=== PATIENT | male | born 1970 | race Caucasian/White ===

== ENCOUNTER 2018-10-31 02:21 | Inpatient (IN) | payer MEDICARE, OTHER, MEDICAID ==
[2018-10-31 04:14] LABS: ADD MAN DIFF? NO
[2018-10-31] MEDS: PIPER-TAZO 3.375 GM IV (PMX) 100 ML IVPB (04:15)
[2018-10-31 04:17] LABS: ABNORMAL IP MESSAGE 1; BASOPHIL # 0.1 10^3/ul (0.0-0.1); EOSINOPHILS # 0.1 10^3/ul (0.0-0.5); EOSINOPHILS % 0.8 % (0.0-7.0); HEMATOCRIT 40.9 % (42.0-52.0); HEMOGLOBIN 13.8 g/dl (14.0-18.0); LYMPHOCYTES # 1.2 10^3/ul (0.8-2.9); MEAN CORPUSCULAR HEMOGLOBIN 30.5 pg (29.0-33.0); MEAN CORPUSCULAR HGB CONC 33.7 g/dl (32.0-37.0); MEAN CORPUSCULAR VOLUME 90.3 fl (82.0-101.0); MEAN PLATELET VOLUME 12.5 fl (7.4-10.4); MONOCYTE # 1.2 10^3/ul (0.3-0.9); MONOCYTES % 19.5 % (0.0-11.0); NEUTROPHIL # 3.3 10^3/ul (1.6-7.5); PLATELET COUNT 73 10^3/UL (140-415); POSITIVE DIFF @See below; RED BLOOD COUNT 4.53 10^6/ul (4.70-6.10); RED CELL DISTRIBUTION WIDTH 15.2 % (11.5-14.5)
[2018-10-31 04:17] LABS: WHITE BLOOD COUNT 5.9 10^3/ul (4.8-10.8)
[2018-10-31 04:38] LABS: INR 1.19; PARTIAL THROMBOPLASTIN TIME 32.8 Sec (23.0-35.0); PROTIME 15.2 Sec (11.9-14.9); PT RATIO 1.2
[2018-10-31 04:56] LABS: ALANINE AMINOTRANSFERASE 43 IU/L (13-69); ALBUMIN 3.2 g/dl (3.3-4.9); ALBUMIN/GLOBULIN RATIO 0.82; ALKALINE PHOSPHATASE 97 IU/L (42-121); ANION GAP 7 (5-13); ASPARTATE AMINO TRANSFERASE 72 IU/L (15-46); BILIRUBIN,INDIRECT 1.2 mg/dl (0-1.1); BILIRUBIN,TOTAL 1.2 mg/dl (0.2-1.3); BLOOD UREA NITROGEN 7 mg/dl (7-20); CALCIUM 8.1 mg/dl (8.4-10.2); CARBON DIOXIDE 29 mmol/L (21-31); CHLORIDE 104 mmol/L (97-110); CREATININE 0.61 mg/dl (0.61-1.24); Estimated GFR > 60 mL/min (>60); GLUCOSE 111 mg/dl (70-220); POTASSIUM 3.8 mmol/L (3.5-5.1); SODIUM 140 mmol/L (135-144); TOTAL PROTEIN 7.1 g/dl (6.1-8.1)
[2018-10-31] MEDS ORDERED: ACETAMINOPHEN 325 MG TAB PO (05:00)
[2018-10-31] MEDS ORDERED: DOCUSATE SODIUM 100 MG CAP PO (05:00)
[2018-10-31] MEDS ORDERED: VANCOMYCIN IV PER PHARMACY XX (05:00)
[2018-10-31] MEDS ORDERED: NACL 0.9% 3 ML SYG IV (05:00)
[2018-10-31 05:08] LABS: TROPONIN-I < 0.012 ng/ml (0.000-0.120)
[2018-10-31] MEDS: VANCOMYCIN 1 GM (PMX) 250 ML IVPB (05:18)
[2018-10-31] MEDS: HYDROCODONE/APAP (5/325) TAB PO ×4 (05:23→23:37)
[2018-10-31] MEDS ORDERED: LORAZEPAM 2 MG INJ IV (07:00)
[2018-10-31 07:03] LABS: LACTIC ACID 2.2 mmol/L (0.5-2.0)
[2018-10-31 09:56] LABS: LACTIC ACID 1.9 mmol/L (0.5-2.0)
[2018-10-31] MEDS: MULTIVITAMINS THERAPEUTIC TAB PO (10:47)
[2018-10-31] MEDS: THIAMINE 100 MG TAB PO (10:47)
[2018-10-31] MEDS: FOLIC ACID 1 MG TAB PO (10:47)
[2018-10-31] MEDS: VANCOMYCIN HCL 1.5 GM in SOD CHLORIDE 0.9% 250 ML IVPB ×2 (12:50→23:33)
[2018-11-01] MEDS: HYDROCODONE/APAP (5/325) TAB PO (06:48)
[2018-11-01 07:02] LABS: ADD MAN DIFF? NO
[2018-11-01 07:06] LABS: ABNORMAL IP MESSAGE 1; BASOPHILS % 0.8 % (0.0-2.0); EOSINOPHILS # 0.1 10^3/ul (0.0-0.5); HEMATOCRIT 42.5 % (42.0-52.0); HEMOGLOBIN 14.3 g/dl (14.0-18.0); LYMPHOCYTES # 1.2 10^3/ul (0.8-2.9); LYMPHOCYTES % 24.2 % (15.0-51.0); MEAN CORPUSCULAR HEMOGLOBIN 30.2 pg (29.0-33.0); MEAN CORPUSCULAR HGB CONC 33.6 g/dl (32.0-37.0); MEAN CORPUSCULAR VOLUME 89.9 fl (82.0-101.0); MEAN PLATELET VOLUME 11.8 fl (7.4-10.4); MONOCYTE # 0.9 10^3/ul (0.3-0.9); MONOCYTES % 16.9 % (0.0-11.0); NEUTROPHIL # 2.7 10^3/ul (1.6-7.5); NEUTROPHILS % 53.7 % (39.0-77.0); PLATELET COUNT 65 10^3/UL (140-415); POSITIVE DIFF @See below; RED BLOOD COUNT 4.73 10^6/ul (4.70-6.10); RED CELL DISTRIBUTION WIDTH 14.6 % (11.5-14.5)
[2018-11-01 07:32] LABS: ANION GAP 4 (5-13); BLOOD UREA NITROGEN 6 mg/dl (7-20); CALCIUM 8.2 mg/dl (8.4-10.2); CARBON DIOXIDE 26 mmol/L (21-31); CHLORIDE 104 mmol/L (97-110); CHOL/HDL RATIO 2.6 RATIO; CHOLESTEROL 121 mg/dl (100-200); CREATININE 0.49 mg/dl (0.61-1.24); Estimated GFR > 60 mL/min (>60); GLUCOSE 86 mg/dl (70-220); HDL CHOLESTEROL 45 mg/dl (27-67); LDL CHOLESTEROL,CALCULATED 62 mg/dl; MAGNESIUM 1.8 mg/dl (1.7-2.5); POTASSIUM 3.8 mmol/L (3.5-5.1); SODIUM 134 mmol/L (135-144); TRIGLYCERIDES 70 mg/dl (0-149)
[2018-11-01] MEDS: FOLIC ACID 1 MG TAB PO (08:13)
[2018-11-01] MEDS: MULTIVITAMINS THERAPEUTIC TAB PO (08:13)
[2018-11-01] MEDS: THIAMINE 100 MG TAB PO (08:13)
[2018-11-01] MEDS: VANCOMYCIN HCL 1.5 GM in SOD CHLORIDE 0.9% 250 ML IVPB ×3 (11:30→21:18)
[2018-11-01] MEDS: BISACODYL (EC) 5 MG TAB PO (14:09)
[2018-11-01] MEDS: HYDROmorphONE 2 MG TAB PO ×2 (14:09→20:22)
[2018-11-01] MEDS: LIDOCAINE 1% (MPF) 5 ML VIAL SC (18:00)
[2018-11-02] MEDS: DIPHENHYDRAMINE 50 MG CAP PO ×2 (00:52→10:05)
[2018-11-02] MEDS: MULTIVITAMINS THERAPEUTIC TAB PO (08:21)
[2018-11-02] MEDS: THIAMINE 100 MG TAB PO (08:21)
[2018-11-02] MEDS: VANCOMYCIN HCL 1.5 GM in SOD CHLORIDE 0.9% 250 ML IVPB ×2 (08:21→21:23)
[2018-11-02] MEDS: FOLIC ACID 1 MG TAB PO (08:21)
[2018-11-02] MEDS: HYDROmorphONE 2 MG TAB PO ×3 (08:31→22:17)
[2018-11-03] MEDS: HYDROmorphONE 2 MG TAB PO (07:27)
[2018-11-03] MEDS: MULTIVITAMINS THERAPEUTIC TAB PO (08:43)
[2018-11-03] MEDS: THIAMINE 100 MG TAB PO (08:43)
[2018-11-03] MEDS: VANCOMYCIN HCL 1.5 GM in SOD CHLORIDE 0.9% 250 ML IVPB (08:43)
[2018-11-03] MEDS: FOLIC ACID 1 MG TAB PO (08:43)
[2018-11-03 10:02] LABS: VANCOMYCIN,TROUGH 5.4 ug/ml (10.0-20.0)
[2018-11-03] MEDS ORDERED: HYDROCODONE/APAP (5/325) TAB PO (13:30)
[2018-11-03] MEDS ORDERED: traMADol 50 MG TAB PO (15:30)
[2018-11-03] MEDS: VANCOMYCIN HCL 1.25 GM in SOD CHLORIDE 0.9% 250 ML IVPB (17:15)
[2018-11-04] MEDS: VANCOMYCIN HCL 1.25 GM in SOD CHLORIDE 0.9% 250 ML IVPB ×3 (01:01→18:53)
[2018-11-04] MEDS: HYDROmorphONE 2 MG TAB PO ×2 (01:01→20:08)
[2018-11-04 05:52] LABS: ADD MAN DIFF? NO
[2018-11-04 05:58] LABS: WHITE BLOOD COUNT 5.2 10^3/ul (4.8-10.8)
[2018-11-04 05:58] LABS: ABNORMAL IP MESSAGE 1; HEMATOCRIT 39.6 % (42.0-52.0); MEAN CORPUSCULAR HEMOGLOBIN 30.4 pg (29.0-33.0); MEAN CORPUSCULAR HGB CONC 32.8 g/dl (32.0-37.0); MEAN CORPUSCULAR VOLUME 92.7 fl (82.0-101.0); MEAN PLATELET VOLUME 12.2 fl (7.4-10.4); PLATELET COUNT 82 10^3/UL (140-415); POSITIVE DIFF @See below; RED BLOOD COUNT 4.27 10^6/ul (4.70-6.10)
[2018-11-04 06:36] LABS: ANION GAP 9 (5-13); BLOOD UREA NITROGEN 8 mg/dl (7-20); CALCIUM 7.7 mg/dl (8.4-10.2); CARBON DIOXIDE 26 mmol/L (21-31); CHLORIDE 104 mmol/L (97-110); CREATININE 0.45 mg/dl (0.61-1.24); Estimated GFR > 60 mL/min (>60); GLUCOSE 204 mg/dl (70-220); SODIUM 139 mmol/L (135-144)
[2018-11-04 07:51] LABS: BAND NEUTROPHILS #M 0.1 10^3/ul (0.0-0.6); BAND NEUTROPHILS % (M) 2 % (0-4); BASOPHILS % (M) 1 % (0-2); EOSINOPHILS % (M) 1 % (0-7); GIANT THROMBO% (M) 3 % (0-0); LYMPHOCYTES % (M) 20 % (15-51); METAMYELOCYTES %M 1 % (0-0); MONOCYTE #M 0.2 10^3/ul (0.3-0.9); MONOCYTES % (M) 5 % (0-11); MYELOCYTES % (M) 1 % (0-0); PLATELET ESTIMATE DECREASED; SEG NEUT #M 3.6 10^3/ul (1.6-7.5); SEGMENTED NEUTROPHILS (M) % 69 % (39-77); SMUDGE%M 11 % (0-0)
[2018-11-04] MEDS: FOLIC ACID 1 MG TAB PO (08:37)
[2018-11-04] MEDS: MULTIVITAMINS THERAPEUTIC TAB PO (08:37)
[2018-11-04] MEDS: THIAMINE 100 MG TAB PO (08:37)
[2018-11-04] MEDS: CEFTRIAXONE 1 GM/50 ML (PMX) 50 ML IVPB (16:46)
[2018-11-04] MEDS ORDERED: DIPHENHYDRAMINE 50 MG INJ (17:08)
[2018-11-04] MEDS ORDERED: METHYLPREDNISOLONE 125 MG INJ (17:16)
[2018-11-04 17:25] LABS: VANCOMYCIN,TROUGH 6.3 ug/ml (10.0-20.0)
[2018-11-04] MEDS: METHYLPREDNISOLONE 125 MG INJ IV (17:36)
[2018-11-04] MEDS: SOD CHLORIDE 0.9% 500 ML IV ×2 (17:37→17:59)
[2018-11-04] MEDS ORDERED: ALBUTEROL 0.5% (NEB) 2.5 MG/0.5 ML AMP (17:43)
[2018-11-04] MEDS: ALBUTEROL 0.083% (NEB) 2.5 MG/3 ML AMP HHN (17:45)
[2018-11-04] MEDS: ONDANSETRON 4 MG INJ IV (20:37)
[2018-11-05] MEDS: VANCOMYCIN HCL 1.75 GM in SOD CHLORIDE 0.9% 500 ML IVPB ×3 (01:04→17:35)
[2018-11-05] MEDS: MULTIVITAMINS THERAPEUTIC TAB PO (08:49)
[2018-11-05] MEDS: THIAMINE 100 MG TAB PO (08:49)
[2018-11-05] MEDS: FOLIC ACID 1 MG TAB PO (08:49)
[2018-11-06] MEDS: HYDROmorphONE 2 MG TAB PO (00:25)
[2018-11-06] MEDS: VANCOMYCIN HCL 1.75 GM in SOD CHLORIDE 0.9% 500 ML IVPB (05:25)
[2018-11-06] MEDS: THIAMINE 100 MG TAB PO (08:36)
[2018-11-06] MEDS: MULTIVITAMINS THERAPEUTIC TAB PO (08:36)
[2018-11-06] MEDS: FOLIC ACID 1 MG TAB PO (08:36)
[2018-11-06] MEDS: VANCOMYCIN HCL 2 GM in SOD CHLORIDE 0.9% 500 ML IVPB (12:13)
== END 2018-11-06 18:10 | disposition home or self-care (01) | DRG 603 ==
LOC: TEL 11-04 18:41 → E/R 02:21 → 5EC 11-03 10:53
DX: L03.116 Cellulitis of left lower limb (principal); Z68.41 Body mass index [BMI] 40.0-44.9, adult; D69.6 Thrombocytopenia, unspecified; F10.20 Alcohol dependence, uncomplicated; B18.2 Chronic viral hepatitis C; I10 Essential (primary) hypertension; E66.01 Morbid (severe) obesity due to excess calories; D69.59 Other secondary thrombocytopenia; K74.60 Unspecified cirrhosis of liver
CPT/HCPCS: 36415; 36569; 71045; 76937; 80048; 80053; 80061; 80202; 82962; 83036; 83605; 83735; 84443; 84484; 85025; 85610; 85730; 87040-91; 93005; 93971; 94664; 96365; 99217; 99285-25